=== PATIENT | male | born 1945 | race Caucasian/White ===

== ENCOUNTER → 2016-08-20 | Outpatient (REF) | payer BC, MEDICARE ==
[2016-08-20 11:50] LABS: BASOPHILS % (AUTO) 0 % (0-2); EOSINOPHILS # (AUTO) 0.1 10^3uL; EOSINOPHILS % (AUTO) 1 % (0-4); LYMPHOCYTES # (AUTO) 1.7 X10^3; MEAN CORPUSCULAR HEMOGLOBIN 30.8 PG (26.0-34.0); MEAN CORPUSCULAR HGB CONC 34.3 g/dL (31.0-37.0); MEAN CORPUSCULAR VOLUME 90 FL (80-100); MONOCYTES # (AUTO) 1.1 X10^3; MONOCYTES % (AUTO) 12 % (3-11); NEUTROPHILS # (AUTO) 6.7 X10^3; NEUTROPHILS % (AUTO) 69 % (51-67); PLATELET COUNT 205 10^3uL (150-450); WHITE BLOOD COUNT 9.66 10^3uL (4.0-11.0)
[2016-08-20 12:06] LABS: ALBUMIN 4.2 g/dL (3.4-5.0); ANION GAP 17.7 MEQ/L (3-15); CALCULATED IONIZED CALCIUM 3.9 mg/dL (3.8-4.6); TOTAL PROTEIN 7.6 g/dL (6.4-8.5)
== END ==
LOC: LAB 11:34
PROVIDERS: ATTEND Family Medicine
DX: R10.84 Generalized abdominal pain (principal)
CPT/HCPCS: 80053; 85025; 86140

== ENCOUNTER → 2016-08-25 | Outpatient (CLI) | payer BC, MEDICARE | LOC: RAD 07:23 | PROVIDERS: ATTEND Family Medicine | DX: Z90.49 Acquired absence of other specified parts of digestive tract (principal); E80.6 Other disorders of bilirubin metabolism; R10.11 Right upper quadrant pain; K76.0 Fatty (change of) liver, not elsewhere classified | CPT/HCPCS: 76705 ==

== ENCOUNTER → 2016-08-27 | Outpatient (CLI) | payer BC, MEDICARE | LOC: LAB 09:42 | PROVIDERS: ATTEND Family Medicine | DX: R73.9 Hyperglycemia, unspecified (principal) | CPT/HCPCS: 36415; 83036 ==